=== PATIENT | male | born 1995 | race Two or more races ===

== ENCOUNTER 2017-10-08 23:09 | Emergency (ER) | payer OTHER ==
[~2017-10-08] VITALS: Ht 162.6 cm; Wt 47.0 kg
[2017-10-09 01:50] VITALS: BP 119/69
== END 2017-10-09 03:00 | disposition home or self-care (01) ==
LOC: ER 23:09
DX: R00.2 Palpitations (principal)
CPT/HCPCS: 71045; 93005; 99284